=== PATIENT | female | born 1935 | race Caucasian/White ===

== ENCOUNTER 2017-12-08 04:49 | Inpatient (IN) ==
[2017-12-03 12:28] LABS: Appearance,Urine HAZY; Bilirubin,Urine NEG (NEG); Color,Urine YELLOW; Glucose,Urine (UA) NEGATIVE (NEG); Leukocyte Esterase,Urine NEG /uL (NEG); Protein,Urine NEG (NEG); Specific Gravity,Urine 1.019 (1.000-1.035); Urine Blood NEG mg/dL (<0.03); Urobilinogen,Urine NEG (NEG)
[2017-12-03 13:20] LABS: Basophils # (Auto) 0.1 K/mcL (0.0-0.3); Basophils % (Auto) 0.9 % (0.0-2.0); Eosinophils # (Auto) 0.1 K/mcL (0.0-0.7); Eosinophils % (Auto) 1.3 % (0.0-7.0); Granulocytes % (Auto) 61.8 % (38.0-78.0); Lymphocytes # (Auto) 1.7 K/mcL (1.5-4.8); Lymphocytes % (Auto) 28.5 % (15.5-49.0); Mean Cell Volume 91.9 fL (80.0-100.0); Mean Corpuscular HGB Conc 34.7 g/dL (31.0-36.0); Mean Corpuscular Hemoglobin 31.9 pg (26.0-34.0); Monocytes # (Auto) 0.4 K/mcL (0.1-0.9); Monocytes % (Auto) 7.5 % (1.0-12.0); Platelet Count 245 K/mcL (140-440); RBC 4.47 M/mcL (4.00-5.20); Red Cell Distribution Width 12.5 % (11.5-14.5)
[2017-12-03 13:20] LABS: Blood Urea Nitrogen 21 mg/dl (8-23)
[2017-12-08] MEDS ORDERED: ceFAZolin 1 GM VIAL IV SCH (05:00)
[2017-12-08] MEDS ORDERED: PREGABALIN 75 MG CAPSULE PO SCH (07:00)
[2017-12-08] MEDS ORDERED: oxyCODONE 10 MG TAB.ER.12H PO SCH (07:00)
[2017-12-08] MEDS ORDERED: KETOROLAC 30 MG, ROPIVACAINE HCL/PF 49.5 ML, EPINEPHrine 0.5 MG, 0.9 % SODIUM CHLORIDE ... IV SCH (07:00)
[2017-12-08] MEDS ORDERED: ACETAMINOPHEN 500 MG TABLET PO SCH (07:00)
[2017-12-08] MEDS ORDERED: SCOPOLAMINE 1 PATCH PATCH TOPICAL ONE (07:08)
[2017-12-08] MEDS ORDERED: GENTAMICIN SULFATE 800 MG/20 ML VIAL IR ONE (07:24)
[2017-12-08] MEDS ORDERED: PROPOFOL 200 MG/20 ML VIAL IV ONE (07:45)
[2017-12-08] MEDS ORDERED: DEXAMETHASONE 10 MG/ML VIAL IV ONE (07:45)
[2017-12-08] MEDS ORDERED: FAMOTIDINE/PF 20 MG/2 ML VIAL IV ONE (07:45)
[2017-12-08] MEDS ORDERED: LIDOCAINE HCL/PF 100 MG/5 ML SYRINGE IV ONE (07:45)
[2017-12-08] MEDS ORDERED: TRANEXAMIC ACID 1,000 MG/10 ML VIAL IV ONE ×3 (07:45→09:28)
[2017-12-08] MEDS ORDERED: ONDANSETRON 4 MG/2 ML VIAL IV ONE (07:45)
[2017-12-08] MEDS ORDERED: ROPIVACAINE HCL/PF 20 ML VIAL IJ ONE (07:45)
[2017-12-08] MEDS ORDERED: MIDAZOLAM 5 MG/5 ML VIAL IV ONE (07:45)
[2017-12-08] MEDS ORDERED: PROMETHAZINE 25 MG/ML VIAL IV PRN (08:45)
[2017-12-08] MEDS ORDERED: FLUMAZENIL 0.1 MG/ML ML IV PRN (08:45)
[2017-12-08] MEDS ORDERED: MEPERIDINE 25 MG/ML SYRINGE IV PRN (08:45)
[2017-12-08] MEDS ORDERED: BENZOCAINE/MENTHOL 1 LOZENGE PO PRN ×2 (08:45→09:11)
[2017-12-08] MEDS ORDERED: METHOCARBAMOL 1,000 MG/10 ML VIAL IV PRN (08:45)
[2017-12-08] MEDS ORDERED: LACTATED RINGERS 1,000 ML IV SCH (08:45)
[2017-12-08] MEDS ORDERED: LACTATED RINGERS 250 ML IV PRN (08:45)
[2017-12-08] MEDS ORDERED: fentaNYL 100 MCG/2 ML VIAL IV PRN (08:45)
[2017-12-08] MEDS ORDERED: IPRATROPIUM/ALBUTEROL 3 ML AMPUL.NEB NEB PRN (08:45)
[2017-12-08] MEDS ORDERED: NALOXONE HCL 0.4 MG/ML VIAL IV PRN (08:45)
--- NOTE | 2017-12-08 09:08 | Brief Operative Note ---
Date of procedure: 12/08/17 Pre-op diagnosis: right knee djd Post-op diagnosis: same Procedure: right knee total knee Grafts/Implants: Yes Anesthesia: PATRICIA Surgeon: Mainor Arauz Orthotic Aide: Niranjan Wallace Estimated blood loss (cc): 20 Tourniquet Time (Minutes): 45 Specimens Removed/Pathology: none sent Condition: stable Disposition: PACU
[2017-12-08] MEDS ORDERED: POLYETHYLENE GLYCOL 3350 17 GM PACKET PO PRN (09:11)
[2017-12-08] MEDS ORDERED: oxyCODONE/APAP 5/325MG TABLET PO PRN (09:11)
[2017-12-08] MEDS ORDERED: ONDANSETRON 4 MG/2 ML VIAL IV PRN (09:11)
[2017-12-08] MEDS ORDERED: BISACODYL 10 MG SUPP.RECT PR PRN (09:11)
[2017-12-08] MEDS ORDERED: ACETAMINOPHEN 325 MG TABLET PO PRN (09:11)
[2017-12-08] MEDS ORDERED: TEMAZEPAM 15 MG CAPSULE PO PRN (09:11)
[2017-12-08] MEDS ORDERED: FLEETS ADULT ENEMA PR PRN (09:11)
[2017-12-08] MEDS ORDERED: HYDROmorphone 2 MG/ML VIAL IV PRN (09:11)
[2017-12-08] MEDS ORDERED: MAGNESIUM HYDROXIDE 30 ML ORAL.SUSP PO PRN (09:11)
[2017-12-08] MEDS ORDERED: FUROSEMIDE 20 MG TABLET PO PRN (09:15)
[2017-12-08] MEDS ORDERED: NITROGLYCERIN 0.4 MG TAB.SUBL SL PRN (09:15)
--- NOTE | 2017-12-08 09:59 | XRay Report ---
CLINICAL INFORMATION: Reason for Exam:Post-Op Total Knee COMPARISON: None. FINDINGS: Total knee prostheses is anatomically aligned. No osseous abnormality. Particular gas and soft tissue swelling seen as expected IMPRESSION: Negative Interpreted and Authenticated by: Dany Prince 12/08/17
--- NOTE | 2017-12-08 10:20 | Operative Note ---
DATE OF OPERATION: 12/08/2017 PREOPERATIVE DIAGNOSIS: Left knee degenerative arthritis. POSTOPERATIVE DIAGNOSIS: Left knee degenerative arthritis. PROCEDURE: Left total knee arthroplasty using the ZO robot. SURGEON: Mainor Arauz M.D. CAR BODY INSPECTOR: Niranjan Wallace PA-C. ANESTHESIA: General LMA anesthesia. COMPLICATIONS: None. DESCRIPTION OF PROCEDURE: The patient was brought to the operating room and put to sleep with general LMA anesthesia. Once asleep, the patient had the left leg sterilely prepped and draped in the usual sterile fashion. Preoperative antibiotics had been given and tranexamic acid given. We registered the robot. We registered the pins intraarticularly after making a midline incision. Once this was done, we then irrigated the wound thoroughly and registered pins above and below the knee. We took the hip through range of motion. We registered thirty points on the femur and tibia and registered the medial and lateral malleoli. Once all these points had been registered, we brought the robot in and made our tibial cut. We made our femoral cuts. These bony fragments were removed. We made our distal femoral cut. At this point we then removed the bony fragments, removed osteophytes and meniscus medially and laterally. We preserved the posterior cruciate ligament. I then trialed the size 3 tibial baseplate and size 3 tibia and a 9 mm poly. This seemed to be equally balanced both flexion and extension as it was on the robot. It had 0 degrees extension and full range of motion. Once these were registered, we then cemented into place the size 9 poly liner, and size 3 tibial baseplate and size 3 femur were all cemented. Excess cement removed. We placed a 9 mm poly and the patella was cut to 12 mm thick. It was started at 18 mm. We placed a 29 mm patellar button. The patient tolerated this well without complication. We then deflated the tourniquet at 45 minutes and controlled bleeding. The bone was prepared for the bone cement, both by pulse lavage and CarboJet. Once this had all been done, we closed the wound with a Stratafix suture x2, and the skin was closed with 2-0 Vicryl and adhesive closure. The patient tolerated this well without complication. RB[facility]:colt Job ID: [id number] Doc ID: [id number] Mainor Arauz MD
[2017-12-08] MEDS ORDERED: PROMETHAZINE 25 MG/ML VIAL IV ONE (11:10)
[2017-12-08] MEDS: 0.45 % SODIUM CHLORIDE 1,000 ML IV SCH ×2 (11:24→19:59)
[2017-12-08] MEDS: KETOROLAC 15 MG/ML VIAL IV SCH ×3 (15:02→23:34)
[2017-12-08] MEDS: SPIRONOLACTONE 25 MG TABLET PO SCH (15:03)
[2017-12-08] MEDS: amLODIPine 5 MG TABLET PO SCH (15:03)
[2017-12-08] MEDS: 0.9 % SODIUM CHLORIDE 10 ML SYRINGE IV SCH ×2 (15:04→20:57)
[2017-12-08] MEDS ORDERED: INSULIN GLARGINE, HUMAN 1 UNIT/0.01 ML SQ SCH (17:00)
[2017-12-08] MEDS: ceFAZolin 1 GM VIAL IV SCH ×2 (17:14→23:35)
[2017-12-08] MEDS: metFORMIN 500 MG TABLET PO SCH (17:19)
[2017-12-08] MEDS ORDERED: POTASSIUM CHLORIDE 20 MEQ TABLET PO SCH (17:30)
[2017-12-08] MEDS: MAGNESIUM OXIDE 400 MG TABLET PO SCH (20:55)
[2017-12-08] MEDS: APIXABAN 5 MG TABLET PO SCH (20:55)
[2017-12-08] MEDS: DOCUSATE SODIUM 100 MG CAPSULE PO SCH (20:55)
[2017-12-08] MEDS ORDERED: CALCIUM W/VIT D3 500 MG TABLET PO SCH (21:00)
[2017-12-08] MEDS ORDERED: METOPROLOL SUCCINATE 25 MG TAB.XL.24H PO SCH (21:00)
[2017-12-08] MEDS ORDERED: SENNOSIDES 1 TABLET PO SCH (21:00)
[2017-12-08] MEDS ORDERED: ASPIRIN 325 MG ENTERIC COATED TABLET PO SCH (21:00)
[2017-12-09] MEDS: 0.45 % SODIUM CHLORIDE 1,000 ML IV SCH (05:27)
[2017-12-09] MEDS: 0.9 % SODIUM CHLORIDE 10 ML SYRINGE IV SCH ×2 (05:32→14:27)
[2017-12-09] MEDS: KETOROLAC 15 MG/ML VIAL IV SCH ×2 (05:32→12:33)
[2017-12-09] MEDS: metFORMIN 500 MG TABLET PO SCH (07:16)
[2017-12-09] MEDS ORDERED: OMEPRAZOLE 20 MG CAPSULE PO SCH (07:30)
[2017-12-09] MEDS ORDERED: LEVOTHYROXINE SODIUM 112 MCG TABLET PO SCH (07:30)
--- NOTE | 2017-12-09 07:41 | Orthopedic Progress Note ---
Subjective Patient information: Note initiated : 12/09/17 at 7:40 am Service Date, if different from initiated Date: [] Patient: Bindu Brown 82 y/o F admitted on 12/08/17 for Left Total Knee Arthroplasty - Sarabjit. Chief Complaint: [Pt is stable this morning on post operative day 1 without any significant concerns or complaints. Patients vital signs have remained stable. Patients dressing is dry and is grossly instact from a neurovascular and motor standpoint. Patients 10 point ROS is otherwise negative. ] Objective Vital signs: Vital Signs Temp Pulse Resp BP BP Pulse Ox 12/09/17 07:34 96.4 F L 57 L 16 134/69 94 12/09/17 06:00 94 12/09/17 04:00 98.3 F 58 L 16 136/54 94 12/09/17 02:00 97 12/09/17 00:00 97.9 F 61 16 144/56 97 12/08/17 22:30 92 12/08/17 22:29 92 12/08/17 21:00 97 12/08/17 20:00 97.5 F 61 16 149/67 97 12/08/17 17:00 97 12/08/17 09:50 97.6 F 53 L 12 137/59 97 12/08/17 09:45 53 L 12 140/47 97 12/08/17 09:40 51 L 12 134/65 96 12/08/17 09:35 56 L 14 152/54 96 12/08/17 09:30 63 14 139/51 97 12/08/17 09:25 54 L 15 127/53 97 12/08/17 09:20 50 L 15 120/56 99 12/08/17 09:15 97.3 F 51 L 21 85/63 97 12/08/17 09:11 97 12/08/17 08:00 97 Intake and Output 12/08/17 12/09/17 12/09/17 21:59 05:59 13:59 Intake Total 1999 / 1999 200 / 200 Output Total 400 / 400 550 / 550 Balance 1600 / 1600 -350 / -350 Intake: IV 1000 / 1000 Sodium Chloride 0.45% 1,000 ml 1000 / 1000 @ 100 mls/hr IV .[facility] Rx#: [id number] Oral 1000 / 1000 200 / 200 Output: Void Amount 400 / 400 550 / 550 Other: Meal yogurt Percent of Meal Consumed 100% Feeding Ability Independent # Voids 1 1 Weight 198 lb 6.4 oz Intake & Output: Intake & Output 12/08/17 12/09/17 12/09/17 21:59 05:59 13:59 Intake Total 1999 / 1999 200 / 200 Output Total 400 / 400 550 / 550 Balance 1600 / 1600 -350 / -350 Weight 198 lb 6.4 oz Intake: IV 1000 / 1000 Sodium Chloride 0.45% 1,000 ml 1000 / 1000 @ 100 mls/hr IV .Q10H [facility] Rx#: [id number] Oral 1000 / 1000 200 / 200 Output: Void Amount 400 / 400 550 / 550 Other: Meal yogurt Percent of Meal Consumed 100% Feeding Ability Independent # Voids 1 1 Incision: Yes healing Incision clean and dry: Yes Dressing: Yes clean, Yes dry Weight bearing status: full Neurological exam IM: Yes motor sensory intact, Yes neurovascular intact Extremities exam IM: Yes Foot pink and warm, Yes neurovascular intact - Labs CBC & BMP: 12/09/17 05:10 12/03/17 11:08 Labs: Orthopedic Labs 12/03/17 11:08 PT 14.0 INR 1.1 APTT 27 12/09/17 12/03/17 05:10 11:09 Hgb 14.3 Hct 34.2 L 41.1 Assessment and Plan (1) Hx of total knee arthroplasty The patient has been educated regarding dressing care, Physical Therapy recommendations, home exercises, restrictions, and follow up appointments. The patient has had all necessary DME prescribed. The patient has remained relatively stable during their hospital course. Status: Acute
--- NOTE | 2017-12-09 07:48 | Discharge Summary ---
Ortho Discharge - TKA - Patient Instructions Diet: Regular Diet Activity: activity as tolerated, weight bearing as tolerated Total Knee Protocol: For Total Knee: Start ROM KRYSTYNA with stationary bike or rocking chair. Work on gaining full extension of knee. Posterior dislocation precautions provided. Hip abductor strengthening and gait training instructions provided. Apply Cryocuff as instructed. Dressing Care: May shower in 3 days, Aquacel Ag - leave on for 5 days Additional Instructions: CPM for home use - Problem Maintenance (1) Hx of total knee arthroplasty Status: Acute - Follow Up Plan Follow Up Appointments: Niranjan Wallace PA-C [Physician Strategic Advisor] - 12/23/17 8:50 am Disposition: Home, Self-Care Prognosis: Good Rehab Potential: Good I certify that the patient requires SNF services: No Overall status at discharge: patient is progressing back to baseline - Orders For Discharge Prescriptions: Docusate Sodium [Colace] 100 mg PO BID #60 capsule Ondansetron HCl [Zofran ODT] 4 mg SL Q4-6HP PRN #30 tablet PRN Reason: Nausea oxyCODONE/APAP [Percocet 5-325 mg] 1 - 2 tab PO Q4HP PRN #75 tablet PRN Reason: Pain Level 3-6
[2017-12-09] MEDS ORDERED: LOSARTAN 50 MG TABLET PO SCH (09:00)
[2017-12-09] MEDS ORDERED: FOCUS FACTOR PO SCH (09:00)
[2017-12-09] MEDS ORDERED: MELOXICAM 7.5 MG TABLET PO PRN (09:00)
[2017-12-09] MEDS: APIXABAN 5 MG TABLET PO SCH (09:11)
[2017-12-09] MEDS: DOCUSATE SODIUM 100 MG CAPSULE PO SCH (09:11)
[2017-12-09] MEDS: MAGNESIUM OXIDE 400 MG TABLET PO SCH (09:11)
[2017-12-09] MEDS: amLODIPine 5 MG TABLET PO SCH (14:25)
[2017-12-09] MEDS: SPIRONOLACTONE 25 MG TABLET PO SCH (14:26)
== END 2017-12-09 15:05 | disposition home or self-care (01) | DRG 470 ==
LOC: MEDSUR 04:49
PROVIDERS: ADMIT Orthopaedic Surgery; ATTEND Orthopaedic Surgery